=== PATIENT | male | born 1985 | race Caucasian/White ===

== ENCOUNTER 2024-03-12 09:26 | Emergency (ER) | payer BC, SELFPAY ==
[2024-03-12 09:33] VITALS: BP 110/83; PULSE 83; TEMP 36.4; O2SAT 98; BMI 27.5
--- NOTE | 2024-03-12 09:56 | ED.EYEPROB1 ---
HPI - Eye Problem General Chief complaint: Eye Problems Stated complaint: EYE PAIN Time Seen by Provider: 03/12/24 09:41 Source: patient Mode of arrival: walk-in Limitations: no limitations History of Present Illness HPI Narrative: 38-year-old male presents for right eye irritation. This occurred just before coming into the emergency department when he was cleaning a battery terminal. There is some rust and he was not wearing goggles. There was no battery acid that was involved. No symptoms in the left eye. Related Data Previous Rx's ?Medication ?Instructions ?Recorded sulfacetamide sodium 10 % eye drops 2 drp ophthalmic (eye) Q4H #15 mL 03/12/24 Allergies Allergy/AdvReac Type Severity Reaction Status Date / Time No Known Drug Allergies Allergy Verified 03/12/24 09:38 Review of Systems ROS Narrative A ten point review of systems is negative except as noted above. [facility] Medical History (Updated 03/12/24 @ 10:36 by Callum Higuera MD) No pertinent past medical history ?Z78.9 - Other specified health status (ICD-10) Surgical History (Updated 03/12/24 @ 09:40 by Russel Kim) No pertinent past surgical history ?Z78.9 - Other specified health status (ICD-10) Social History Little interest or pleasure in doing things: not at all Feeling down, depressed, or hopeless: not at all Exam Narrative Exam Narrative: Nurses note and vital signs reviewed and patient is not hypoxic. General: The patient appears well and in no apparent distress. Patient is resting comfortably on cart. Skin: Warm, dry, no pallor noted. There is no rash noted. Head: Normocephalic, atraumatic Eye: Left is normal. Right conjunctiva is mildly injected. No foreign bodies are found including with lid eversion. Fluorescein staining and Iniguez lamp examination show no corneal abrasions. Ears, Nose, Mouth, and Throat: oral mucosa is moist. Nares patent. Cardiovascular: Regular Rate and Rhythm Respiratory: Patient is in no distress, no accessory muscle use, lungs are clear to auscultation, no wheezing, rales or rhonchi Back: non-tender GI: Soft and nontender Musculoskeletal: All joints have full range of motion Neurological: A&O, normal speech Psychiatric: Cooperative Constitutional Vital Signs, click to edit/add: Last Vital Signs Temp 97.6 F 03/12/24 09:33 Pulse 83 03/12/24 09:33 Resp 20 03/12/24 09:33 BP 110/83 03/12/24 09:33 Pulse Ox 98 03/12/24 09:33 O2 Del Method Room Air 03/12/24 09:33 Course Vital Signs Vital signs: Vital Signs Temperature 97.6 F 03/12/24 09:33 Pulse Rate 83 03/12/24 09:33 Respiratory Rate 20 03/12/24 09:33 Blood Pressure 110/83 03/12/24 09:33 Pulse Oximetry 98 03/12/24 09:33 Oxygen Delivery Method Room Air 03/12/24 09:33 Temperature 97.6 F 03/12/24 09:33 Pulse Rate 83 03/12/24 09:33 Respiratory Rate 20 03/12/24 09:33 Blood Pressure 110/83 03/12/24 09:33 Pulse Oximetry 98 03/12/24 09:33 Oxygen Delivery Method Room Air 03/12/24 09:33 MDM - Eye Problem MDM Narrative Medical decision making narrative: On physical exam no foreign body or corneal abrasion was present. We have irrigated his eye with Gadiel lens set up. He is prescribed Bleph-10 and will follow-up with his bear keeper if symptoms persist. Treatment diagnosis and follow-up were discussed with the patient. Differential Diagnosis Differential diagnosis: Likely corneal abrasion, conjunctivitis, subconjunctival hemorrhage and other (Foreign body) Discharge Plan Discharge Chief Complaint: Eye Problems Clinical Impression: Eye foreign body Patient Disposition: Home, Self-Care Time of Disposition Decision: 10:36 Condition: Good Mode of Transportation: Private Vehicle Prescriptions / Home Meds: New sulfacetamide sodium 10 % drops 2 drp ophthalmic (eye) Q4H Qty: 15 0RF Print Language: Kyrgyz Instructions: Eye Foreign Body (ED) Referrals: Collin Denson DO [Primary Care Provider] - 1 week
[2024-03-12] MEDS: FLUORESCEIN SODIUM 1 MG STRIP OP (10:04)
[2024-03-12] MEDS: 0.9 % SODIUM CHLORIDE 500 ML IV (10:05)
== END 2024-03-12 10:42 | disposition home or self-care (01) ==
PROVIDERS: Emergency Provider Emergency Medicine; Family Provider Internal Medicine; PCP Internal Medicine
DX: T15.91XA Foreign body on external eye, part unspecified, right eye, initial encounter (principal); W44.9XXA Unspecified foreign body entering into or through a natural orifice, initial encounter
CPT/HCPCS: 99285